=== PATIENT | female | born 1950 | race Caucasian/White ===

== ENCOUNTER 2022-01-02 13:35 | Outpatient (REF) | payer OTHER, SELFPAY ==
[2022-01-02 14:23] LABS: Anion Gap 14 (12-20); Blood Urea Nitrogen 11 mg/dL (9-16); Calcium 10.4 mg/dL (8.4-10.2); Carbon Dioxide 31 mmol/L (22-29); Chloride 102 mmol/L (96-108); Estimated Glomerular Filt Rate > 60; Glucose Random 99 mg/dL (60-115); Potassium 4.7 mmol/L (3.3-5.1); Sodium 142 mmol/L (135-145)
[2022-01-02 14:47] LABS: T4 Thyroxine 7.9 ug/dL (4.5-12.0); Thyroid Stimulating Hormone 0.27 uIU/mL (0.32-4.0)
[2022-01-02 15:01] LABS: Folate > 20.0 ng/mL (> or = 4.0); Vitamin B12 462 pg/mL (200-900)
[2022-01-06 16:36] LABS: Homocysteine 9.9 umol/L (<10.4)
[2022-01-08 09:11] LABS: Methylmalonic Acid 119 nmol/L (87-318)
[2022-01-08 15:11] LABS: Vitamin D 25-OH, D2 <4 ng/mL; Vitamin D 25-OH, D3 48 ng/mL; Vitamin D 25-OH, Total 48 ng/mL (30-100)
== END 2022-01-02 13:36 | disposition home or self-care (01) ==
LOC: HO.LAB 13:35
PROVIDERS: PCP Internal Medicine; Visit Provider Psychiatry & Neurology Neurology
DX: G30.9 Alzheimer's disease, unspecified (principal)
CPT/HCPCS: 36415; 80048; 82306; 82607; 82746; 83090; 83921; 84436; 84443

== ENCOUNTER 2024-11-03 13:26 | Outpatient (AMB) | payer OTHER, SELFPAY ==
--- OUTSIDE RECORDS SUMMARY | 2024-11-03 13:31 | XMS_ITS | Encounter Summary ---
Author Organization [employer] Address [address] [place] [address] Care Team Providers Care Roof Cement And Paint Maker Name Role Phone Gisela Pillai MD Primary Care Provider [phone] Encounter Details Date Type Department Care Team (Late st Contact Info) Description 10/07/[address] [facility] - Main Lab [address] [place] [phone] Katheryn Neville MD [address] [address] Essential (primary) hypertension; Hyperlipidemia, unspecified; Weakness Social History Tobacco Use Types Packs/Day Years Used Date Smoking Tobacco: Former Cigarettes Q uit: 03/30/2006 Smokeless Tobacco: Never Alcohol Use Standard Drinks/Week Comments Yes 0 (1 standard drink = 0.6 oz pur e alcohol) Housing Instability Answer Date Recorde d Are you worried that in the next 2 months you may not have stable housing? No 02/11/2024 Food Access & Nutrition Answer Date Rec orded Do you have access to a vari ety of food including fruits and vegetables? Yes 02/11/2024 Access to Healthcare Answer Date Record ed Within the last 3 months, ho w many times did you visit the emergency department for your medical care? 0 02/11/2024 Health Literacy Answer Date Recorded How often do you need to hav e someone help you when you read instructions, pamphlets, or other written material from your doctor or pharmacy? Always 02/11/2024 Caregiver: How often do you need to have someone help you when you read instructions, pamphlets, or other written material from your doctor or pharmacy? Not on file 02/11/2024 Financial Risk Answer Date Recorded How hard is it for you to pa y for the very basics like food, housing, medical care, and air conditioning / heating? Patient declined 02/11/2024 Transportation Answer Date Recorded Has the lack of transportati on kept you from meetings, work, or from getting things needed for daily living? No Has the lack of transportati on kept you from medical appointments or from getting medications? No 02/11/2024 Social Isolation Answer Date Recorded How often do you feel lonely or isolated from th ose around you? Never 02/11/2024 Food Risk Answer Date Recorded Within the past 12 months we worried whether our food would run out before we got money to buy more. Never true 02/11/2024 Within the past 12 months th e food we bought just didn't last and we didn't have money to get more. Never true 02/11/2024 Dependent Care Answer Date Recorded Do you need help finding or paying for care for your loved ones. For example, child care center administrator or elderly care for an older adult? No 02/11/2024 Education Answer Date Recorded Do you think completing more education or training, like finishing a GED, going to college, or learning a trade, would be helpful for you? No 02/11/2024 Employment and Income Answer Date Recor ded During the last four weeks, have you been actively looking for work? No 02/11/2024 Living Situation Answer Date Recorded What is your living situation? 1 04/12/2023 Comments No Sex and Gender Information Value Date Recorded Sex Assigned at Female 03/03/2024 2:14 PM EST Legal Sex Female 9:27 PM EST Gender Identity Female 03/03/2024 2:14 PM EST Sexual Orientation Straight 03/03/2024 2: 14 PM EST documented as of this encounter Plan of Treatment Upcoming Encounters Date Type Department Care Team (Late st Contact Info) Description 01/18/2025 9:45 AM EDT Office Visit Orthopedic Surgery - [place] [address] [address] Eric Alcala, DPM [address] [address] 02/13/2025 11:00 AM EST Office Visit Adult Medicine [facility] [address] [place] [address] Roshni Summers PA [address] [place] [address] documented as of this encounter Visit Diagnoses Diagnosis Essential (primary) hypertension Unspecified essential hypertension Hyperlipidemia, unspecified Weakness Other malaise and fatigue documented in this encounter Additional Health Concerns Assessment Noted Time PHQ-9 Depression Total Score: 0 02/11/20 24 11:58 AM EST A fall risk assessment has been complete d for the patient 02/11/2024 11:56 AM EST documented as of this encounter Care Teams Roof Cement And Paint Maker Relationship Specialty Start Date End Date Gisela Pillai MD [address] [place] [id number] PCP - General Internal Medicine 11/16/20 documented as of this encounter
--- OUTSIDE RECORDS SUMMARY | 2024-11-03 13:31 | XMS_ITS ---
Author Name [facility] Organization Unknown Care Team Organization Name Specialty Phone Email Start Date End Da te [facility] Gisela Pillai Primary Care 02/04/2022 4
--- NOTE | 2024-11-03 13:57 | MHC.OFFVIS ---
Intake Visit Reasons: 3 Months Accompanied by: Spouse Allergies No Known Allergies Allergy (Verified 11/03/24 13:59) Medication List - Last Reconciled 11/03/24 by Zoila Nunez CNP amlodipine 5 mg PO DAILY donepezil 10 mg PO BEDTIME 90 days gabapentin mg PO levothyroxine 50 mcg PO DAILY memantine 10 mg PO BID sertraline 50 mg PO DAILY simvastatin 20 mg PO BEDTIME HPI Comments Details: She tripped and fell walking upstairs, fractured R ankle and required surgical repair in 08/2024. She was doing okay. No further falls. Memory was about the same, forgetful at times, some days than others. Has trouble using TV remote. Has some trouble with word finding. 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 Increased dose of sertraline seemed to help, less anxious. No medication side effects. Does not like to be left alone.?Gets some anxiety when she knows she has appointment coming up and is worried about being late. Sleep was okay, sometimes kicks in her sleep. Alternating between 5mg and 10mg of donepezil without issue. Previously, was having hallucinations and nightmares with higher dose of donepezil.? Gradual onset and slow progression of cognitive decline with memory especially short-term starting around 2019. 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 On 11/01/2021, she slipped and fell, fractured left femur that required surgery. She had 2 brain MRIs which were unremarkable. Normal laboratory dementia. She has no children. for 51-years. [facility] Medical History (Updated 11/03/24 @ 14:02 by Zoila Nunez CNP) Hypothyroidism HLD (hyperlipidemia) Hypertension Alzheimer disease Family History (Updated 11/03/24 @ 14:08 by Zoila Nunez CNP) Sister Dementia Review of Systems Const Denies chills, Denies daytime sleepiness, Denies difficulty sleeping, Denies fatigue, Denies fever(s), Denies frequent falls, Denies headache(s), Denies increased appetite, Denies poor appetite, Denies snoring, Denies weakness, Denies weight gain and Denies weight loss Eyes Denies loss of vision ENT Denies vertigo, Denies dizziness, Denies headache(s) and Denies neck pain Card Denies chest pain at rest, Denies chest pain with activity, Denies syncope, Denies leg edema, Denies palpitations, Denies dyspnea and Denies dyspnea on exertion Resp Denies cough, Denies dyspnea, Denies dyspnea on exertion and Denies snoring GI Denies abdominal pain, Denies constipation, Denies heartburn, Denies diarrhea and Denies nausea Denies urinary frequency, Denies urinary incontinence and Denies urinary urgency Musc Denies abnormal gait, Denies back pain, Denies myalgias, Denies arthralgias, Denies neck pain, Denies numbness and Denies tingling Neuro Denies abnormal gait, Denies vertigo, Denies dizziness, Denies syncope, Denies frequent falls, Denies headache(s), Denies lack of coordination, Denies loss of vision, Reports memory loss, Denies numbness, Denies Other visual disturbances, Denies restless legs, Denies seizure-like activity, Denies tingling, Denies paresthesias, Denies tremor(s) and Denies weakness Psych Reports anxiety, Denies depression, Denies auditory hallucinations, Reports memory loss and Denies visual hallucinations Endo Denies fatigue and Denies palpitations Physical Exam Const Other: General Appearance:? normal, in no acute distress. Heart:? S1, S2 normal, no murmurs. Lungs:? clear anteriorly and posteriorly. Musculoskeletal:? normal. Extremities:? no edema. Psych:? alert, as below Neuro Other: Abnormal Neurological Findings:?MMSE < 13/30. In wheelchair. Mental Status: alert, as below Cranial Nerves: Pupils are equal, round, and reactive to light. External ocular muscles are intact. Visual licea are full, no ptosis. Face is symmetrical, no facial weakness or droop. Facial sensations are normal. Tongue protrudes in midline. Palate elevates symmetrically. Shoulder shrugging is normal Motor Examination: Normal muscle tone, bulk and strength. No atrophy or fasciculations. No drift of the extended upper extremities. DTR 2+. Plantars are flexor. Sensory Exam: Normal light touch, temperature, pinprick, vibration, and joint-position sensations. Rhomberg sign is absent. Coordination: No ataxia. No titubation. Gait Exam: In wheelchair. Cerebellar Signs: [id number] is okay. Extrapyramidal System: No tremor, rigidity with normal facial expressions. No bradykinesia. No bradyphrenia. Normal arm swing and posture. No propulsion or retropulsion. Speech: Normal. No dysphasia or dysarthria. MMSE Level of Consciousness: Alert. Orientation: Does not know correct year, month, date, day, or season.?Does not know correct city, county,?or state. Does not know correct location or floor.? Registration: Able to register 3 objects. Attention: Unable to do serial 7's Recall: Able to recall 0 out of 3 objects. Language: Normal spontaneous speech, fluency, repetition, naming, comprehension, reading, and writing. Total Score: <13/30. Results Reviewed Results Reviewed: 01/06/22 EEG- WNL Labs normal. MRI brain negative Assessment & Plan Assessment & Plan (1) Alzheimer disease: Code(s): G30.9 - Alzheimer's disease, unspecified; F02.80 - Dementia in other diseases classified elsewhere, unspecified severity, without behavioral disturbance, psychotic disturbance, mood disturbance, and anxiety Category: Medical Plan: Continue memantine 10mg 1 tablet twice a day Continue donepezil 10mg 1/2 ? 1 tablet daily Continue sertraline 50mg 1 tablet daily Coding Level of Care Code Est Pt Level 4 (63059) Diagnoses Alzheimer disease G30.9; F02.80
== END 2024-11-03 14:19 | disposition home or self-care (01) ==
LOC: HO.HSM 13:27
PROVIDERS: PCP Internal Medicine; Referring Provider Internal Medicine; Visit Provider Registered Nurse
DX: G30.9 Alzheimer's disease, unspecified (principal); F02.80 Dementia in other diseases classified elsewhere, unspecified severity, without behavioral disturbance, psychotic disturbance, mood disturbance, and anxiety
CPT/HCPCS: 99214

== ENCOUNTER 2025-02-14 14:21 | Outpatient (AMB) | payer OTHER, SELFPAY ==
--- NOTE | 2025-02-14 14:45 | A.OFFVIS_ITS ---
Intake Visit Reasons: 3m Accompanied by: Spouse Allergies No Known Allergies Allergy (Verified 02/14/25 14:46) Medication List - Last Reconciled 02/14/25 by Zoila Nunez CNP amlodipine 5 mg PO DAILY donepezil 10 mg PO BEDTIME 90 days gabapentin mg PO levothyroxine 50 mcg PO DAILY memantine 10 mg PO BID 90 days sertraline 50 mg PO DAILY 90 days simvastatin 20 mg PO BEDTIME HPI Comments Details: She was doing okay. Memory was about the same, some days better than others. She was forgetful and repetitive, asking the same question over and over. She has some trouble with word finding. 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 She forgot how to use the vacuum and has trouble using the TV remote. Mood was okay. Gets a bit anxious when she knows she has appointment coming up and worries about being late. Does not like to be alone much. Sleep was okay, sometimes kicks in her sleep. Alternating between 5mg and 10mg of donepezil without issue. Previously, was having hallucinations and nightmares with higher dose of donepezil.?No falls. She tripped and fell walking upstairs, fractured R ankle and required surgical repair in 08/2024. Gradual onset and slow progression of cognitive decline with memory especially short-term starting around 2019. 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 On 11/01/2021, she slipped and fell, fractured left femur that required surgery. She had 2 brain MRIs which were unremarkable. Normal laboratory dementia. She has no children. for 51-years. [facility] Medical History (Updated 11/03/24 @ 14:02 by Zoila Nunez CNP) Hypothyroidism HLD (hyperlipidemia) Hypertension Alzheimer disease Family History (Updated 11/03/24 @ 14:08 by Zoila Nunez CNP) Sister Dementia Review of Systems Const Denies chills, Denies daytime sleepiness, Denies difficulty sleeping, Denies fatigue, Denies fever(s), Denies frequent falls, Denies headache(s), Denies increased appetite, Denies poor appetite, Denies snoring, Denies weakness, Denies weight gain and Denies weight loss Eyes Denies loss of vision ENT Denies vertigo, Denies dizziness, Denies headache(s) and Denies neck pain Card Denies chest pain at rest, Denies chest pain with activity, Denies syncope, Denies leg edema, Denies palpitations, Denies dyspnea and Denies dyspnea on exertion Resp Denies cough, Denies dyspnea, Denies dyspnea on exertion and Denies snoring GI Denies abdominal pain, Denies constipation, Denies heartburn, Denies diarrhea and Denies nausea Denies urinary frequency, Denies urinary incontinence and Denies urinary urgency Musc Denies abnormal gait, Denies back pain, Denies myalgias, Denies arthralgias, Denies neck pain, Denies numbness and Denies tingling Neuro Denies abnormal gait, Denies vertigo, Denies dizziness, Denies syncope, Denies frequent falls, Denies headache(s), Denies lack of coordination, Denies loss of vision, Reports memory loss, Denies numbness, Denies Other visual disturbances, Denies restless legs, Denies seizure-like activity, Denies tingling, Denies paresthesias, Denies tremor(s) and Denies weakness Psych Reports anxiety, Denies depression, Denies auditory hallucinations, Reports memory loss and Denies visual hallucinations Endo Denies fatigue and Denies palpitations Physical Exam Const Other: General Appearance:? normal, in no acute distress. Heart:? S1, S2 normal, no murmurs. Lungs:? clear anteriorly and posteriorly. Musculoskeletal:? normal. Extremities:? no edema. Psych:? alert, as below Neuro Other: Abnormal Neurological Findings:?MMSE < 13/30. Mental Status: alert, as below Cranial Nerves: Pupils are equal, round, and reactive to light. External ocular muscles are intact. Visual licea are full, no ptosis. Face is symmetrical, no facial weakness or droop. Facial sensations are normal. Tongue protrudes in midline. Palate elevates symmetrically. Shoulder shrugging is normal Motor Examination: Normal muscle tone, bulk and strength. No atrophy or fasciculations. No drift of the extended upper extremities. DTR 2+. Plantars are flexor. Sensory Exam: Normal light touch, temperature, pinprick, vibration, and joint- position sensations. Rhomberg sign is absent. Coordination: No ataxia. No titubation. Gait Exam: Cautious. Cerebellar Signs: [id number] is okay. Extrapyramidal System: No tremor, rigidity with normal facial expressions. No bradykinesia. No bradyphrenia. Normal arm swing and posture. No propulsion or retropulsion. Speech: Normal. No dysphasia or dysarthria. MMSE Level of Consciousness: Alert. Orientation: Does not know correct year, month, date, day, or season.?Does not know correct city, county,?or state. Does not know correct location or floor.? Registration: Able to register 3 objects. Attention: Unable to do serial 7's Recall: Able to recall 0 out of 3 objects. Language: Normal spontaneous speech, fluency, repetition, naming, comprehension, reading, and writing. Total Score: <13/30. Results Reviewed Results Reviewed: 01/06/22 EEG- WNL Labs normal. MRI brain negative Assessment & Plan Assessment & Plan (1) Alzheimer disease: Code(s): G30.9 - Alzheimer's disease, unspecified; F02.80 - Dementia in other diseases classified elsewhere, unspecified severity, without behavioral disturbance, psychotic disturbance, mood disturbance, and anxiety Category: Medical Plan: Continue memantine 10mg 1 tablet twice a day. Continue donepezil 10mg 1/2 ? 1 tablet daily. Continue sertraline 50mg 1 tablet daily. Follow up in 6 months or sooner as needed. Medications: Refilled donepezil 10 mg PO BEDTIME 90 tabs 1RF 90 days sertraline 50 mg PO DAILY 90 tabs 1RF 90 days memantine 10 mg PO BID 180 tabs 1RF 90 days Coding Level of Care Code Est Pt Level 4 (97699) Diagnoses Alzheimer disease G30.9; F02.80
--- OUTSIDE RECORDS SUMMARY | 2025-02-15 11:02 | XMS_ITS | Encounter Summary ---
Author Organization [employer] Address [address] [place] [address] Care Team Providers Care Appeals Nurse Name Role Phone Gisela Pillai MD Primary Care Provider Encounter Details Date Type Department Care Team (Late st Contact Info) Description 09/30/2024 Lab Requisition [facility] - Main Lab [address] [place] [phone] Katheryn Neville MD [address] [address] Essential (primary) hypertension; Hyperlipidemia, unspecified; Weakness Social History Tobacco Use Types Packs/Day Years Used Date Smoking Tobacco: Former Cigarettes 1 Q uit: 03/30/2006 Smokeless Tobacco: Never Alcohol [...] for your loved ones. For example, child welfare caseworker or elderly care for an older adult? [...] Date Recorded What is your living situation? Unrecognized valu e 02/11/2024 Comments No Sex and Gender Information Value Date Recorded Sex Assigned at Female 03/03/2024 2:14 PM EST Legal Sex Female 9:27 PM EST Gender Identity Female 03/03/2024 2:14 PM EST Sexual Orientation Straight 03/03/2024 2: 14 PM EST documented as of this encounter Plan of Treatment Upcoming Encounters Date Type Department Care Team (Late st Contact Info) Description 02/16/2025 1:30 PM EST Office Visit Adult Medicine [facility] [address] [place], [place] [phone] Gisela Pillai MD [address] [place], [place] 04/20/2025 10:30 AM EST Office Visit Orthopedic Surgery [facility] [address] [phone] Eric Alcala DPM [address] [phone] documented as of this encounter Procedures Procedure Name Priority Date/Time Associated Diagnosis Comments COMPLETE BLOOD COUNT Routine 10/03/2024 7:55 AM EDT Essential (primary) hypertension Hyperlipidemia, unspecified Weakness BASIC METABOLIC PANEL Routine 10/03/2024 7:55 AM EDT Essential (primary) hypertension Hyperlipidemia, unspecified Weakness documented in this encounter Results * Basic metabolic panel (10/03/2024 7:55 AM EDT) Sodium 139 133 - 145 mmol/L LAB CHEMISTRY METHOD 10/03/2024 10:56 AM [facility] Potassium 3.9 3.5 - 5.5 mmol/L LAB CHEMISTRY METHOD 10/03/2024 10:56 AM [facility] Chloride 103 96 - 110 mmol/L LAB CHEMISTRY METHOD 10/03/2024 10:56 AM [facility] CO2 29 21 - 32 mmol/L LAB CHEMISTRY METHOD 10/03/2024 10:56 AM [facility] Anion Gap 7 3 - 11 LAB CHEMISTRY METHOD 10/03/2024 10:56 AM [facility] Glucose 96 70 - 100 mg/dL LAB CHEMISTRY METHOD 10/03/2024 10:56 AM EDT [facility] BUN 9 5 - 25 mg/dL LAB CHEMISTRY METHOD 10/03/2024 10:56 AM EDT [facility] Creatinine 0.69 0.50 - 1.10 mg/dL LAB CHEMISTRY METHOD 10/03/2024 10:56 AM EDT [facility] eGFR 91 >=60 mL/min/1. 73m2 LAB CHEMISTRY METHOD 10/03/2024 10:56 AM EDT [facility] Comment:Calculation based on the Chronic Kidney Disease Epidemiology Collaboration (CKD-EPI) equation refit without adjustment for race. BUN/Creatinine Ratio 13.0 LAB CHEMISTRY METHOD 10/03/2024 10:56 AM [facility] Calcium 9.5 8.5 - 10.5 mg/dL LAB CHEMISTRY METHOD 10/03/2024 10:56 AM EDT [facility] Blood Venous blood specimen / Unknown Venipuncture / Unknown 10/03/2024 7:55 AM EDT 10/03/2024 9:45 AM EDT us Katheryn Neville MD LAB BLOOD ORDERABLES Fin al Result [facility] [address] [place] [address], * (ABNORMAL) Complete blood count (10/03/2024 7:55 AM EDT) WBC 6.6 4.8 - 10.8 K/mcL LAB HEMETOLOGY METHOD 10/03/2024 10:08 AM EDT [facility] RBC 4.20 3.80 - 4.80 M/mcL LAB HEMETOLOGY METHOD 10/03/2024 10:08 AM [facility] Hemoglobin 11.6 11.5 - 16.0 g/dL LAB HEMETOLOGY METHOD 10/03/2024 10:08 AM T [facility] Hematocrit 35.9 35.0 - 47.0 % LAB HEMETOLOGY METHOD 10/03/2024 10:08 AM [facility] MCV 85.5 79.0 - 98.0 FL LAB HEMETOLOGY METHOD 10/03/2024 10:08 AM [facility] MCH 27.6 27.0 - 32.0 pcg LAB HEMETOLOGY METHOD 10/03/2024 10:08 AM EDT [facility] MCHC 32.3 32.0 - 37.0 g/dL LAB HEMETOLOGY METHOD 10/03/2024 10:08 AM [facility] RDW 15.7(H) 11.0 - 15.0 % LAB HEMETOLOGY METHOD 10/03/2024 10:08 AM [facility] Platelets 473(H) 130 - 400 K/mcL LAB HEMETOLOGY METHOD 10/03/2024 10:08 AM [facility] MPV 10.3 7.0 - 11.0 FL LAB HEMETOLOGY METHOD 10/03/2024 10:08 AM [facility] NRBC 0.0 <1.0 % LAB HEMETOLOGY METHOD 10/03/2024 10:08 AM [facility] NRBC Absolute 0.00 <0.10 K/mcL LAB HEMETOLOGY METHOD 10/03/2024 10:08 AM [facility] Blood Venous blood specimen / Unknown Venipuncture / Unknown 10/03/2024 7:55 AM EDT 10/03/2024 9:45 AM EDT us Katheryn Neville MD LAB BLOOD ORDERABLES Fin al Result [facility] [address] [place] [address], documented in this encounter Visit Diagnoses Diagnosis Essential (primary) hypertension Unspecified essential hypertension Hyperlipidemia, unspecified Weakness Other malaise and fatigue documented in this encounter Additional Health Concerns Assessment Noted Time PHQ-9 Depression Total Score: 0 02/11/20 24 11:58 AM EST A fall risk assessment has been complete d for the patient 02/11/2024 11:56 AM EST documented as of this encounter Care Teams Appeals Nurse Relationship Specialty Start Date End Date Gisela Pillai MD [address] [place] [address] PCP - General Internal Medicine 11/16/20 documented as of this encounter
--- OUTSIDE RECORDS SUMMARY | 2025-02-15 11:03 | XMS_ITS | Encounter Summary ---
Author Organization [employer] Address [address] [place] [address] Care Team Providers Care Dray Truck Driver Name Role Phone Gisela Pillai MD Primary Care Provider [phone] Encounter Details Date Type Department Care Team (Late st Contact Info) Description 10/05/2024 Lab Requisition [facility] - Main Lab [address] [place] [phone] Katheryn Neville MD [address] [address] Essential (primary) hypertension; Hyperlipidemia, unspecified; Weakness Social [...] care for your loved ones. For example, exceptional children's teacher or elderly care for an older adult? [...] 1:30 PM EST Office Visit Adult Medicine [facility] [address] [place], [place] [phone] Gisela Pillai MD [address] [place] [address] 04/20/2025 10:30 AM EST Office Visit Orthopedic Surgery [facility] [address] [phone] Eric Alcala, DPM [address] [phone] documented as of this encounter Visit Diagnoses Diagnosis Essential (primary) hypertension Unspecified essential hypertension Hyperlipidemia, unspecified Weakness Other malaise and fatigue documented in this encounter Additional Health Concerns Assessment Noted Time PHQ-9 Depression Total Score: 0 02/11/20 11:58 AM EST A fall risk assessment has been complete d for the patient 02/11/2024 11:56 AM EST documented as of this encounter Care Teams Dray Truck Driver Relationship Specialty Start Date End Date Gisela Pillai MD [address] [place] [address] PCP - General Internal Medicine 11/16/20 documented as of this encounter
--- OUTSIDE RECORDS SUMMARY | 2025-02-15 11:03 | XMS_ITS | Encounter Summary ---
Author Organization [employer] Address [address] [place] [address] Care Team Providers Care Wallpaper Printer Name Role Phone Gisela Pillai MD Primary Care Provider [phone] Encounter Details Date Type Department Care Team (Late st Contact Info) Description 10/07/2024 Lab Requisition [facility] - Main Lab [address] [facility] [address] [address] [place] [phone] Katheryn Neville MD [address] [address] Essential (primary) hypertension; Hyperlipidemia, unspecified; Weakness Social [...] care for your loved ones. For example, home child care provider or elderly care for an older adult? [...] 1:30 PM EST Office Visit Adult Medicine [facility] [address] [place], [place] [phone] Gisela Pillai MD [address] [place] [address] 04/20/2025 10:30 AM EST Office Visit Orthopedic Surgery [facility] [address] [phone] Eric Alcala, DPM [address] [phone] documented as of this encounter [...] documented as of this encounter Care Teams Wallpaper Printer Relationship Specialty Start Date End Date Gisela Pillai MD [address] [place] [address] PCP - General Internal Medicine 11/16/20 documented as of this encounter
--- OUTSIDE RECORDS SUMMARY | 2025-02-15 11:05 | XMS_ITS | Encounter Summary ---
Author Organization [employer] Address [address] [place] [address] Care Team Providers Care Log Rider Name Role Phone Gisela Pillai MD Primary Care Provider [phone] Encounter Details Date Type Department Care Team (Late st Contact Info) Description 09/28/2024 Lab Requisition [facility] - Main Lab [address] [facility] [place] [phone] Katheryn Neville MD [address] [address] Essential (primary) hypertension; Hyperlipidemia, unspecified; Weakness Social [...] care for your loved ones. For example, early childhood coordinator or elderly care for an older adult? [...] 1:30 PM EST Office Visit Adult Medicine [facility] [address] [place], [place] [phone] Gisela Pillai MD [address] [place], [place] 04/20/2025 10:30 AM EST Office Visit Orthopedic Surgery [facility] [address] [phone] Eric Alcala DPBong [address] [phone] documented as of this encounter Procedures Procedure Name Priority Date/Time Associated Diagnosis Comments COMPLETE BLOOD COUNT Routine 09/29/2024 8:11 AM EDT Essential (primary) hypertension Hyperlipidemia, unspecified Weakness BASIC METABOLIC PANEL Routine 09/29/2024 8:11 AM EDT Essential (primary) hypertension Hyperlipidemia, unspecified Weakness documented in this encounter Results * (ABNORMAL) Complete blood count (09/29/2024 8:11 AM EDT) WBC 8.9 4.8 - 10.8 K/mcL LAB HEMETOLOGY METHOD 09/29/2024 10:38 AM EDT [facility] RBC 4.10 3.80 - 4.80 M/mcL LAB HEMETOLOGY METHOD 09/29/2024 10:38 AM EDT [facility] LAB Hemoglobin 11.3(L) 11.5 - 16.0 g/dL LAB HEMETOLOGY METHOD 09/29/2024 10:38 AM [facility] Hematocrit 35.0 35.0 - 47.0 % LAB HEMETOLOGY METHOD 09/29/2024 10:38 AM T [facility] LAB MCV 85.0 79.0 - 98.0 FL LAB HEMETOLOGY METHOD 09/29/2024 10:38 AM EDT [facility] LAB MCH 27.4 27.0 - 32.0 pcg LAB HEMETOLOGY METHOD 09/29/2024 10:38 AM EDT [facility] LAB MCHC 32.3 32.0 - 37.0 g/dL LAB HEMETOLOGY METHOD 09/29/2024 10:38 AM EDT [facility] RDW 15.5(H) 11.0 - 15.0 % LAB HEMETOLOGY METHOD 09/29/2024 10:38 AM EDT [facility] Platelets 471(H) 130 - 400 K/mcL LAB HEMETOLOGY METHOD 09/29/2024 10:38 AM EDT [facility] MPV 10.3 7.0 - 11.0 FL LAB HEMETOLOGY METHOD 09/29/2024 10:38 AM EDT [facility] NRBC 0.0 <1.0 % LAB HEMETOLOGY METHOD 09/29/2024 10:38 AM EDT [facility] NRBC Absolute 0.00 <0.10 K/mcL LAB HEMETOLOGY METHOD 09/29/2024 10:38 AM EDT [facility] Blood Venous blood specimen / Unknown Venipuncture / Unknown 09/29/2024 8:11 AM EDT 09/29/2024 10:14 AM EDT us Katheryn Neville MD LAB BLOOD ORDERABLES Fin al Result [facility] LAB [address] [place] [address], * Basic metabolic panel (09/29/2024 8:11 AM EDT) [facility] Sodium 139 133 - 145 mmol/L LAB CHEMISTRY METHOD 09/29/2024 10:59 AM [facility] Potassium 4.1 3.5 - 5.5 mmol/L LAB CHEMISTRY METHOD 09/29/2024 10:59 AM [facility] Chloride 104 96 - 110 mmol/L LAB CHEMISTRY METHOD 09/29/2024 10:59 AM [facility] CO2 29 21 - 32 mmol/L LAB CHEMISTRY METHOD 09/29/2024 10:59 AM [facility] Anion Gap 6 3 - 11 LAB CHEMISTRY METHOD 09/29/2024 10:59 AM [facility] Glucose 85 70 - 100 mg/dL LAB CHEMISTRY METHOD 09/29/2024 10:59 AM [facility] BUN 10 5 - 25 mg/dL LAB CHEMISTRY METHOD 09/29/2024 10:59 AM [facility] Creatinine 0.65 0.50 - 1.10 mg/dL LAB CHEMISTRY METHOD 09/29/2024 10:59 AM [facility] eGFR 93 >=60 mL/min/1. 73m2 LAB CHEMISTRY METHOD 09/29/2024 10:59 AM [facility] Comment:Calculation based on the Chronic Kidney Disease Epidemiology Collaboration (CKD-EPI) equation refit without adjustment for race. BUN/Creatinine Ratio 15.4 LAB CHEMISTRY METHOD 09/29/2024 10:59 AM [facility] Calcium 9.7 8.5 - 10.5 mg/dL LAB CHEMISTRY METHOD 09/29/2024 10:59 AM [facility] Blood Venous blood specimen / Unknown Venipuncture / Unknown 09/29/2024 8:11 AM EDT 09/29/2024 10:14 AM EDT us Katheryn Neville MD LAB BLOOD ORDERABLES Fin al Result [facility] [address] [place] [address], documented in this encounter Visit Diagnoses Diagnosis Essential (primary) hypertension Unspecified essential hypertension Hyperlipidemia, unspecified Weakness Other malaise and fatigue documented in this encounter Additional Health Concerns Assessment Noted Time PHQ-9 Depression Total Score: 0 02/11/20 11:58 AM EST A fall risk assessment has been complete d for the patient 02/11/2024 11:56 AM EST documented as of this encounter Care Teams Log Rider Relationship Specialty Start Date End Date Gisela Pillai MD [address] [place] [address] PCP - General Internal Medicine 11/16/20 documented as of this encounter
--- OUTSIDE RECORDS SUMMARY | 2025-02-15 11:05 | XMS_ITS | Encounter Summary ---
Author Organization [email or web address] Address [address] [place] [address] Care Team Providers Care Cryptographic Clerk Name Role Phone Gisela Pillai MD Primary Care Provider Encounter Details Date Type Department Care Team (Late st Contact Info) Description 09/23/2024 Lab Requisition [facility] - Main Lab [address] [place] [phone] Katheryn Neville MD [address] [address] Essential (primary) hypertension; Hyperlipidemia, unspecified; Weakness Social [...] care for your loved ones. For example, special needs child caregiver or elderly care for an older adult? [...] EST Office Visit Adult Medicine [facility] [address] [place], [place] [phone] Gisela Pillai MD [address] [place], [place] 04/20/2025 10:30 AM EST Office Visit Orthopedic Surgery [facility] [address] [phone] Eric Alcala DPBong [address] [phone] documented as of this encounter Procedures Procedure Name Priority Date/Time Associated Diagnosis Comments COMPLETE BLOOD COUNT Routine 09/26/2024 7:19 AM EDT Essential (primary) hypertension Hyperlipidemia, unspecified Weakness BASIC METABOLIC PANEL Routine 09/26/2024 7:19 AM EDT Essential (primary) hypertension Hyperlipidemia, unspecified Weakness documented in this encounter Results * (ABNORMAL) Complete blood count (09/26/2024 7:19 AM EDT) WBC 6.6 4.8 - 10.8 K/mcL LAB HEMETOLOGY METHOD 09/26/2024 10:41 AM EDT [facility] RBC 3.80 3.80 - 4.80 M/mcL LAB HEMETOLOGY METHOD 09/26/2024 10:41 AM EDT [facility] Hemoglobin 10.3(L) 11.5 - 16.0 g/dL LAB HEMETOLOGY METHOD 09/26/2024 10:41 AM [facility] LAB Hematocrit 32.1(L) 35.0 - 47.0 % LAB HEMETOLOGY METHOD 09/26/2024 10:41 AM EDT [facility] MCV 84.7 79.0 - 98.0 FL LAB HEMETOLOGY METHOD 09/26/2024 10:41 AM EDT [facility] MCH 27.2 27.0 - 32.0 pcg LAB HEMETOLOGY METHOD 09/26/2024 10:41 AM EDT [facility] MCHC 32.1 32.0 - 37.0 g/dL LAB HEMETOLOGY METHOD 09/26/2024 10:41 AM EDT [facility] RDW 14.9 11.0 - 15.0 % LAB HEMETOLOGY METHOD 09/26/2024 10:41 AM EDT [facility] Platelets 343 130 - 400 K/mcL LAB HEMETOLOGY METHOD 09/26/2024 10:41 AM EDT [facility] MPV 10.4 7.0 - 11.0 FL LAB HEMETOLOGY METHOD 09/26/2024 10:41 AM EDT [facility] NRBC 0.0 <1.0 % LAB HEMETOLOGY METHOD 09/26/2024 10:41 AM EDT [facility] NRBC Absolute 0.00 <0.10 K/mcL LAB HEMETOLOGY METHOD 09/26/2024 10:41 AM [facility] Blood Venous blood specimen / Unknown Venipuncture / Unknown 09/26/2024 7:19 AM EDT 09/26/2024 10:04 AM EDT us Katheryn Neville MD LAB BLOOD ORDERABLES Fin al Result [facility] [address] [place] [address], * Basic metabolic panel (09/26/2024 7:19 AM EDT) [facility] Sodium 140 133 - 145 mmol/L LAB CHEMISTRY METHOD 09/26/2024 11:01 AM [facility] Potassium 4.2 3.5 - 5.5 mmol/L LAB CHEMISTRY METHOD 09/26/2024 11:01 AM [facility] Chloride 104 96 - 110 mmol/L LAB CHEMISTRY METHOD 09/26/2024 11:01 AM [facility] CO2 29 21 - 32 mmol/L LAB CHEMISTRY METHOD 09/26/2024 11:01 AM [facility] Anion Gap 7 3 - 11 LAB CHEMISTRY METHOD 09/26/2024 11:01 AM [facility] Glucose 90 70 - 100 mg/dL LAB CHEMISTRY METHOD 09/26/2024 11:01 AM [facility] BUN 11 5 - 25 mg/dL LAB CHEMISTRY METHOD 09/26/2024 11:01 AM [facility] Creatinine 0.65 0.50 - 1.10 mg/dL LAB CHEMISTRY METHOD 09/26/2024 11:01 AM [facility] eGFR 93 >=60 mL/min/1. 73m2 LAB CHEMISTRY METHOD 09/26/2024 11:01 AM [facility] Comment:Calculation based on the Chronic Kidney Disease Epidemiology Collaboration (CKD-EPI) equation refit without adjustment for race. BUN/Creatinine Ratio 16.9 LAB CHEMISTRY METHOD 09/26/2024 11:01 AM [facility] Calcium 9.0 8.5 - 10.5 mg/dL LAB CHEMISTRY METHOD 09/26/2024 11:01 AM [facility] Blood Venous blood specimen / Unknown Venipuncture / Unknown 09/26/2024 7:19 AM EDT 09/26/2024 10:04 AM EDT us Katheryn Neville MD LAB BLOOD ORDERABLES Fin al Result [facility] [address] [place] [address], documented in this encounter Visit Diagnoses Diagnosis Essential (primary) hypertension Unspecified essential hypertension Hyperlipidemia, unspecified Weakness Other malaise and fatigue documented in this encounter Additional Health Concerns Assessment Noted Time PHQ-9 Depression Total Score: 0 02/11/20 24 11:58 AM EST A fall risk assessment has been complete d for the patient 02/11/2024 11:56 AM EST documented as of this encounter Care Teams Cryptographic Clerk Relationship Specialty Start Date End Date Gisela Pillai MD [address] [place] [address] PCP - General Internal Medicine 11/16/20 documented as of this encounter
--- OUTSIDE RECORDS SUMMARY | 2025-02-15 11:05 | XMS_ITS | Encounter Summary ---
Author Organization [employer] Address [address] [place] [address] Care Team Providers Care Culinary Chef Name Role Phone Gisela Pillai MD Primary Care Provider [phone] Encounter Details Date Type Department Care Team (Late st Contact Info) Description 09/22/2024 Lab Requisition [facility] - Main Lab [address] [facility] [place] [phone] Katheryn Neville MD [address] [address] Essential (primary) hypertension; Weakness; Hyperlipidemia, unspecified; Hypothyroidism, unspecified; Vitamin D deficiency, unspecified Social History Tobacco Use Types Packs/Day Years [...] care for your loved ones. For example, rn child or elderly care for an older adult? [...] Visit Adult Medicine [facility] [address] [place], [place] [phone] Gisela Pillai MD [address] [place], [place] 04/20/2025 10:30 AM EST Office Visit Orthopedic Surgery - [place] [address] [phone] Eric Alcala, DPM [address] [phone] documented as of this encounter Procedures Procedure Name Priority Date/Time Associated Diagnosis Comments THYROID STIMULATING HORMONE WITH REFLEX TO FREE T4 AND FREE T3 Routine 09/22/2024 6:56 AM EDT Essential (primary) hypertension Weakness Hyperlipidemia, unspecified Hypothyroidism, unspecified Vitamin D deficiency, unspecified COMPLETE BLOOD COUNT Routine 09/22/2024 6:56 AM EDT Essential (primary) hypertension Weakness Hyperlipidemia, unspecified Hypothyroidism, unspecified Vitamin D deficiency, unspecified FOLATE Routine 09/22/2024 6:56 AM EDT Essential (primary) hypertension Weakness Hyperlipidemia, unspecified Hypothyroidism, unspecified Vitamin D deficiency, unspecified VITAMIN B12 Routine 09/22/2024 6:56 AM EDT Essential (primary) hypertension Weakness Hyperlipidemia, unspecified Hypothyroidism, unspecified Vitamin D deficiency, unspecified COMPREHENSIVE METABOLIC PANEL Routine 09/22/2024 6:56 AM EDT Essential (primary) hypertension Weakness Hyperlipidemia, unspecified Hypothyroidism, unspecified Vitamin D deficiency, unspecified documented in this encounter Results * (ABNORMAL) Folate (09/22/2024 6:56 AM EDT) Folate >20.0(H) 2.8 - 17.0 ng/ml LAB CHEMISTRY METHOD 09/22/2024 10:11 AM EDT [facility] Blood Venous blood specimen / Unknown Venipuncture / Unknown 09/22/2024 6:56 AM EDT 09/22/2024 8:42 AM EDT Katheryn Neville MD LAB BLOOD ORDERABLES Fin al Result [facility] [address] [place] [address], [place] [phone] * Vitamin B12 (09/22/2024 6:56 AM EDT) [facility] Vitamin B-12 748 250 - 900 pcg/mL LAB CHEMISTRY METHOD 09/22/2024 10:11 AM EDT [facility] Blood Venous blood specimen / Unknown Venipuncture / Unknown 09/22/2024 6:56 AM EDT 09/22/2024 8:42 AM EDT Katheryn Neville MD LAB BLOOD ORDERABLES Fin al Result [facility] [address] [place] [address], [place] [phone] * Thyroid stimulating hormone with reflex to free t4 and free t3 (09/22/2024 6:56 AM EDT) [facility] TSH 2.81 0.40 - 4.00 mcIU/mL LAB CHEMISTRY METHOD 09/22/2024 10:51 AM EDT [facility] Blood Venous blood specimen / Unknown Venipuncture / Unknown 09/22/2024 6:56 AM EDT 09/22/2024 8:42 AM EDT Katheryn Neville MD LAB BLOOD ORDERABLES Fin al Result [facility] [address] [place] [address], * (ABNORMAL) Comprehensive metabolic panel (09/22/2024 6:56 AM EDT) Sodium 138 133 - 145 mmol/L LAB CHEMISTRY METHOD 09/22/2024 9:48 AM [facility] Potassium 4.1 3.5 - 5.5 mmol/L LAB CHEMISTRY METHOD 09/22/2024 9:48 AM [facility] Chloride 102 96 - 110 mmol/L LAB CHEMISTRY METHOD 09/22/2024 9:48 AM [facility] CO2 29 21 - 32 mmol/L LAB CHEMISTRY METHOD 09/22/2024 9:48 AM [facility] Anion Gap 7 3 - 11 LAB CHEMISTRY METHOD 09/22/2024 9:48 AM [facility] Glucose 103(H) 70 - 100 mg/dL LAB CHEMISTRY METHOD 09/22/2024 9:48 AM [facility] BUN 10 5 - 25 mg/dL LAB CHEMISTRY METHOD 09/22/2024 9:48 AM [facility] Creatinine 0.63 0.50 - 1.10 mg/dL LAB CHEMISTRY METHOD 09/22/2024 9:48 AM [facility] eGFR 93 >=60 mL/min/1. 73m2 LAB CHEMISTRY METHOD 09/22/2024 9:48 AM [facility] Comment:Calculation based on the Chronic Kidney Disease Epidemiology Collaboration (CKD-EPI) equation refit without adjustment for race. BUN/Creatinine Ratio 15.9 LAB CHEMISTRY METHOD 09/22/2024 9:48 AM [facility] Calcium 8.9 8.5 - 10.5 mg/dL LAB CHEMISTRY METHOD [facility]/22[facility]24 [facility] AST (SGOT) 35 10 - 42 unit/L LAB CHEMISTRY METHOD 09/22/2024 9:48 AM [facility] ALT (SGPT) 20 10 - 60 unit/L LAB CHEMISTRY METHOD 09/22/2024 9:48 AM [facility] Alkaline Phosphatase 80 42 - 121 unit/L LAB CHEMISTRY METHOD 09/22/2024 9:48 AM EDT [facility] Total Protein 5.8(L) 6.0 - 8.0 g/dL LAB CHEMISTRY METHOD 09/22/2024 9:48 AM [facility] Albumin 2.7(L) 3.2 - 5.0 g/dL LAB CHEMISTRY METHOD 09/22/2024 9:48 AM [facility] Total Bilirubin 0.4 0.0 - 1.4 mg/dL LAB CHEMISTRY METHOD 09/22/2024 9:48 AM [facility] Blood Venous blood specimen / Unknown Venipuncture / Unknown 09/22/2024 6:56 AM EDT 09/22/2024 8:42 AM EDT us Katheryn Neville MD LAB BLOOD ORDERABLES Fin al Result [facility] [address] [place] [address], * (ABNORMAL) Complete blood count (09/22/2024 6:56 AM EDT) WBC 8.5 4.8 - 10.8 K/mcL LAB HEMETOLOGY METHOD [facility] RBC 3.60(L) 3.80 - 4.80 M/mcL LAB HEMETOLOGY METHOD 09/22/2024 9:12 AM [facility] Hemoglobin 9.9(L) 11.5 - 16.0 g/dL LAB HEMETOLOGY METHOD 09/22/2024 9:12 AM EDT [facility] Hematocrit 29.9(L) 35.0 - 47.0 % LAB HEMETOLOGY METHOD 09/22/2024 9:12 AM T [facility] MCV 83.1 79.0 - 98.0 FL LAB HEMETOLOGY METHOD 09/22/2024 9:12 AM EDT [facility] MCH 27.5 27.0 - 32.0 pcg LAB HEMETOLOGY METHOD 09/22/2024 9:12 AM T [facility] MCHC 33.1 32.0 - 37.0 g/dL LAB HEMETOLOGY METHOD 09/22/2024 9:12 AM [facility] RDW 15.3(H) 11.0 - 15.0 % LAB HEMETOLOGY METHOD 09/22/2024 9:12 AM [facility] Platelets 236 130 - 400 K/mcL LAB HEMETOLOGY METHOD 09/22/2024 9:12 AM [facility] MPV 10.9 7.0 - 11.0 FL LAB HEMETOLOGY METHOD 09/22/2024 9:12 AM [facility] NRBC 0.0 <1.0 % LAB HEMETOLOGY METHOD 09/22/2024 9:12 AM [facility] NRBC Absolute 0.00 <0.10 K/mcL LAB HEMETOLOGY METHOD 09/22/2024 9:12 AM [facility] Blood Venous blood specimen / Unknown Venipuncture / Unknown 09/22/2024 6:56 AM EDT 09/22/2024 8:42 AM EDT us Katheryn Neville MD LAB BLOOD ORDERABLES Fin al Result [facility] [address] [place] [address], documented in this encounter Visit Diagnoses Diagnosis Essential (primary) hypertension Unspecified essential hypertension Weakness Other malaise and fatigue Hyperlipidemia, unspecified Hypothyroidism, unspecified Vitamin D deficiency, unspecified documented in this encounter Additional Health Concerns Assessment Noted Time PHQ-9 Depression Total Score: 0 02/11/20 11:58 AM EST A fall risk assessment has been complete d for the patient 02/11/2024 11:56 AM EST documented as of this encounter Care Teams Culinary Chef Relationship Specialty Start Date End Date Gisela Pillai MD [address] [place] [address] PCP - General Internal Medicine 11/16/20 documented as of this encounter
--- OUTSIDE RECORDS SUMMARY | 2025-02-15 11:07 | XMS_ITS | Encounter Summary ---
Author Organization [employer] Address [address] [place] [address] Care Team Providers Care Assistant Principal Name Role Phone Gisela Pillai MD Primary Care Provider [phone] Reason for Visit * Reason Onset Date Comments Request For Order(s) 01/24/2025 Encounter Details Date Type Department Care Team (Late st Contact Info) Description 01/24/2025 Telephone Adult Medicine [facility] [address] [place], [place] [phone] Gisela Pillai MD [address] [place], [place] Social History Tobacco Use Types Packs/Day Years [...] for your loved ones. For example, child nutrition director or elderly care for an older adult? [...] PM EST documented as of this encounter Progress Notes * Mariposa Pan RN - 02/13/2025 1:24 PM EST A hospital follow up appointment was made for her to be seen in the office on 02/16/25 at 1:[address] Pillai and he is in agreement with this plan. * TRACY Reyes - 02/13/2025 12:51 PM EST Does patient need hospital follow-up scheduled? Patient no-showed appointment today and there have been additional messages questioning capacity. Please re-schedule with PCP. TRACY Reyes * [place] - 01/24/2025 4:[address] [facility] is calling and asking that the PCP order a bone density for the patient . The patient had a fracture 09/16/24. documented in this encounter Plan of Treatment Upcoming Encounters Date Type Department Care Team (Late st Contact Info) Description 02/16/2025 1:30 PM EST Office Visit Adult Medicine [address] [phone] Gisela Pillai MD [address] [place], [place] 04/20/2025 10:30 AM EST Office Visit Orthopedic Surgery - [place] [address] [phone] Eric Alcala DPM [address] [phone] documented as of this encounter Visit Diagnoses Not on filedocumented in this encounter Additional Health Concerns Assessment Noted Time PHQ-9 Depression Total Score: 0 02/11/20 11:58 AM EST A fall risk assessment has been complete d for the patient 02/11/2024 11:56 AM EST documented as of this encounter Care Teams Assistant Principal Relationship Specialty Start Date End Date Gisela Pillai MD [address] [place] [address] PCP - General Internal Medicine 11/16/20 documented as of this encounter
--- OUTSIDE RECORDS SUMMARY | 2025-02-15 11:08 | XMS_ITS | Encounter Summary ---
Author Organization [employer] Address [address] [place] [address] Care Team Providers Care [employer] Name Role Phone Gisela Pillai MD Primary Care Provider [phone] Reason for Visit * Reason Onset Date Comments capasity questions 01/12/2025 Encounter Details Date Type Department Care Team (Late st Contact Info) Description 01/12/2025 Telephone Adult Medicine [facility] [address] [place], [place] [phone] Gisela Pillai MD [address] [place], [place] Social History Tobacco Use Types Packs/Day [...] for your loved ones. For example, exceptional children teacher or elderly care for an older [...] as of this encounter Progress Notes * Franca King - 01/18/2025 12:06 PM EDT [facility] ([facility] called and stated no respond has been received from the PCP in reference to decisional capacity, health care proxy and if health care proxy is in invoke. [facility] want to know if PCP has any concerns [facility] info is [phone] * Jordyn Eisenberg - 01/16/2025 9:28 AM EDT [facility] calling on status of return call please call her at [phone] * Kunal Pascual [place] - 01/13/2025 12:16 PM EDT Please review and advise. * Franca King - 01/12/2025 2:48 PM EDT [facility] ([facility]) Felicia called wanting to know patient decisional capacity, health care proxy and if health care proxy is in invoke. [facility] want to know if PCP has any concerns[facility] info is [phone] documented in this encounter Plan of Treatment Upcoming Encounters Date Type Department Care Team (Late st Contact Info) Description 02/16/2025 1:30 PM EST Office Visit Adult Medicine [facility] [address] [place], [place] [phone] Gisela Pillai MD [address] [place], [place] 04/20/2025 10:30 AM EST Office Visit Orthopedic Surgery - [place] [address] [facility] [address] [place] [address] Eric Alcala, DPM [address] [phone] documented as of this encounter Visit Diagnoses Not on filedocumented in this encounter Additional Health Concerns Assessment Noted Time PHQ-9 Depression Total Score: 0 02/11/20 11:58 AM EST A fall risk assessment has been complete d for the patient 02/11/2024 11:56 AM EST documented as of this encounter Care Teams [employer] Relationship Specialty Start Date End Date Gisela Pillai MD [address] [place] [phone] PCP - General Internal Medicine 11/16/20 documented as of this encounter
--- OUTSIDE RECORDS SUMMARY | 2025-02-15 11:08 | XMS_ITS | Clinical Summary ---
Author Organization [address] [facility] Address [address] [place] [address] Phone Care Team Providers Care Channel Account Manager Name Role Phone Gisela Pillai MD Primary Care Provider [phone] Allergies Active Allergy Reactions Criticality Noted Date Comments Erythromycin 08/17/2012 Latex 02/11/2024 Medications loperamide (IMODIUM) 2 mg capsule TAKE 1 CAPSULE BY MOUTH EVERY 4 HOURS NEEDED LOOSE STOOL 11/23/19 23 Active CYANOCOBALAMIN , VITAMIN B-12, ORAL Take by mouth. Active clobetasoL (TEMOVATE) 0.05 % topical solution Apply ~ 10 drops to scalp twice a day if itch is present 12/10/19 23 Active omega-3 acid ethyl esters (LOVAZA) 1 gram capsule Take 2 capsules (2,000 mg total) by mouth 1 (one) time each day. Active memantine (NAMENDA) 10 mg tablet Take 1 tablet (10 mg total) by mouth 2 (two) times a day. Active ketoconazole (NIZORAL) 2 % shampoo Apply 10 mL to wet scalp, lather, leave on 10 minutes, and rinse; apply 3x weekly 12/10/19 Active donepeziL (ARICEPT) 10 mg tablet Take 0.5 tablets (5 mg total) by mouth at bedtime. Active cholecalcifero l (VITAMIN D-3) 25 mcg (1,000 unit) capsule Take 1 capsule (1,000 Units total) by mouth 1 (one) time each day. 02/18/20 22 Active aspirin 81 mg EC tablet Take 1 tablet (81 mg total) by mouth 1 (one) time each day. Active multivitamin (MULTIPLE VITAMINS ORAL) Take by mouth daily. Active calcium carbonate (CALCIUM 600 ORAL) Take 1 tablet by mouth 2 (two) times a day. 02/18/20 Active cyclosporine (RESTASIS OPHT) apply to the eye. Active PARoxetine (PAXIL) 10 mg tablet Take 1 tablet (10 mg total) by mouth 1 (one) time each day in the morning. 90 tablet 1 08/12/19 25 Active gabapentin (NEURONTIN) 300 mg capsule TAKE 1 CAPSULE(300 MG) BY MOUTH EVERY 12 HOURS 180 capsule 1 10/21/19 25 Active amLODIPine (NORVASC) 5 mg tablet TAKE 1 TABLET(5 MG) BY MOUTH AT BEDTIME 90 tablet 1 10/25/19 25 Active LORazepam (ATIVAN) 0.5 mg tablet Take 1 tablet (0.5 mg total) by mouth 1 (one) time each day if needed for anxiety. Max Daily Amount: 0.5 mg 28 tablet 12/01/19 25 Active zolpidem (AMBIEN) 5 mg tablet Take 1 tablet (5 mg total) by mouth at bedtime as needed for sleep. Max Daily Amount: 5 mg 28 tablet 01/20/20 25 Active simvastatin (ZOCOR) 20 mg tablet TAKE 1 TABLET(20 MG) BY MOUTH AT BEDTIME 90 tablet 02/08/20 25 Active levothyroxine (SYNTHROID, LEVOTHROID) 50 mcg tablet TAKE 1 TABLET(50 MCG) BY MOUTH 1 TIME EACH DAY BEFORE BREAKFAST 90 tablet 02/08/20 25 Active simvastatin (ZOCOR) 20 mg tablet Take 1 tablet (20 mg total) by mouth at bedtime. 90 tablet 1 08/12/19 25 025 Discontinued levothyroxine (SYNTHROID, LEVOTHROID) 50 mcg tablet Take 1 tablet (50 mcg total) by mouth 1 (one) time each day before breakfast. 90 tablet 1 08/12/19 25 025 Discontinued zolpidem (AMBIEN) 5 mg tablet Take 1 tablet (5 mg total) by mouth at bedtime as needed for sleep. Max Daily Amount: 5 mg 28 tablet 12/01/19 25 025 Discontinued(Re order) Active Problems Problem Noted Date Diagnosed Date Dementia ([facility] V24, [facility] V28) 07/30/2022 Prediabetes 02/18/2022 B12 deficiency 11/27/2021 Overview (01/03/2024): 10/18 initial level B12 136 Hip fracture ([facility], [facility] V28) 11/27/19 Overview (01/03/2024): 11/18 left femoral neck fracture, ORIF Renal cyst, left 09/18/2021 Overview (01/03/2024): Dr. Frank- 2cm left renal lesion, not cystic in nature. Repeat CT abd with contrast pending Iritis 09/09/2018 Overview (01/03/2024): [facility], Dr. Mcgowan Low back pain 11/19/2017 Overview (01/03/2024): Lumbar fusion 09/2017, Dr. Garcia Hypertension 09/02/2017 Hyperparathyroidism ([facility] V24) 06/15/2014 Overview (01/03/2024): Dr. Fish Diverticulosis 01/26/2013 Overview (01/03/2024): Found incidentally on colonoscopy Colon polyp 10/13/2012 Overview (01/03/2024): 09/05/09 - GI Dr. Langley; small 4-5mm cecal polyp (tubular adenoma), two 4mm polyps (tubular adenoma, hyperplastic polyp) at hepatic flexure; internal hemorrhoids; followup recommended 3 years 01/21/13 - Dr. Koenigs - colonoscopy - polyp removed; diverticulosis in the transverse colon; internal hemorrhoids; repeat colonoscopy 5 years Osteopenia 10/13/2012 Overview (01/03/2024): Bone density - 08/13/09 T score - right femoral neck -1.6; left femoral neck -1.9 Osteopenia - 12/12 Osteopenia - 02/13 Osteopenia of hip - 01/16 GERD (gastroesophageal reflux disease) 3 Overview (01/03/2024): Dr. Langley - 01/29/09 - upper endoscopy (no intestinal metaplasia identified); small hiatal hernia Hyperlipidemia 08/17/2012 Insomnia 08/17/2012 Anxiety 08/17/2012 Overview (01/03/2024): Intolerance of Paxil Eczema 08/17/2012 Hypothyroidism 08/17/2012 Encounters Date Type Department Care Team Description 01/24/2025 Telephone Adult Medicine [address] [phone] Gisela Pillai MD 01/18/2025 9:45 AM EDT Office Visit Orthopedic Surgery - [address] [phone] Eric Alcala, DPM Metatarsalgia of both feet (Primary Dx); Dermatophytosis of nail; Corns and callosities 01/12/2025 Telephone Adult Medicine [address] [phone] Gisela Pillai MD from Last 3 Months Immunizations Immunization Administration Dates Next Due HepB-CpG (Heplisav-B) 18yo and older 02/18/2023 Influenza Quadravalent, 0.5m l (Fluad) 65yo and older 12/16/2022,12/30/2021,12/27/2020 Influenza Quadravalent, 0.5m l (Fluzone High-dose) 65yo and older 12/27/2019 Influenza trivalent, 0.5mL ( Fluad) 65yo and older 12/09/2018,12/25/2017 Influenza trivalent, 0.5mL ( Fluzone High-dose) 65yo and older 01/14/2024,12/23/2016,11/30/2015 Influenza trivalent, with pr eservative (Fluzone; Afluria) 6mo and older 12/14/2014,02/01/2014,01/26/2013 Moderna SARS-CoV-2 COVID-19, mRNA, LNP-S, preservative free 02/02/2021 Pneumococcal conjugate 13 va lent (Prevnar 13, PCV13) 2mo and older 11/24/2014 Pneumococcal polysaccharide 23 valent (Pneumovax 23) 2yo and older 11/30/2015 RSV, bivalent, protein subun it RSVpreF, 0.5mL, Preservative Free (ABRYSVO) 50yo and older or 32 through 36 wks of 02/10/2023 Td Tetanus diptheria (Tdvax) 7yo and older 11/29/2020 Tdap Tetanus diptheria acell ular pertussis (Boostrix; Adacel) 7yo and older 08/15/2010 Zoster recombinant (Shingrix ) 19yo and older 06/15/2024,04/15/2024,12/27/2020,10/12 Surgical History Surgery Date Site/Laterality Comments TONSILLECTOMY WISDOM TOOTH EXTRACTION OTHER SURGICAL HISTORY 09/2017 ARTHRODESIS POSTERIOR INTERBODY 1 [facility] LUMBAR; COMMENT: L4-5, Dr. Garcia COLONOSCOPY 04/27/2018 2 polyps (tub ad/sessile ad), tics, int hem Medical History Medical History Date Comments Hypothyroidism 08/17/2012 Hyperlipidemia 08/17/2012 Environmental allergies 08/17/2012 Insomnia 08/17/2012 Anxiety 08/17/2012 Eczema 08/17/2012 GERD (gastroesophageal reflux disease) 3 Colon polyp 10/13/201209/06 - followup 6; as per old records; GI Dr. Langley Osteopenia 10/13/2012 Bone density - T score - right femoral neck -1.6; left femoral neck -1.9 Abnormal PFTs 10/13/2012 02/12/12 - Octavio metry FVC 94 % predicted FEV1 49 % predicted FEV1/FVC 54 % predicted PEF 34 % predicted [id number] 20 % predicted Diverticulosis 01/26/2013 Found incidental ly on colonoscopy Hip fracture ([facility] V24, [facility] V28) 11/26/202111/18 left femoral neck fract ure, ORIF Dementia ([facility] V24, [facility] V28) 07/30/2022 B12 deficiency 11/27/202110/18 initial lev el B12 136 Family History Medical History Relation Name Comments Breast cancer Aunt maternal aunt; second primary breast cancer at age 85 Other cancer Brother neck lump ? ann shree Liver disease Father HTN Alzheimer's disease Mother Other: colon cancer Other 1 maternal great uncle Other cancer Other 2 paternal great uncle Hyperthyroidism Sister cholesterol Relation Name Status Comments Aunt Brother Alive Father (Age 78) Mother (Age 85) Other 1 Other 2 Sister Alive Social History Tobacco Use Types Packs/Day Years Used Date Smoking Tobacco: Former Cigarettes 1 Q uit: 03/30/2006 Smokeless Tobacco: Never Tobacco Cessation:Counseling Given: Not Answered Alcohol Use Standard Drinks/Week Comments Yes 0 [...] for your loved ones. For example, child neurologist or elderly care for an older adult? [...] Orientation Straight 03/03/2024 2: 14 PM EST Obstetrics History Para Term AB IAB SAB Ectopic Multiple Livin g Live Births 0 0 0 0 Last Filed Vital Signs Vital Sign Reading Time Taken Comments Blood Pressure 118/62 08/11/2024 11:13 AM EDT Pulse 56 08/11/2024 11:13 AM EDT Temperature 35.9 C (96.7 F) 08/11/2024 11:13 AM EDT Respiratory Rate 16 08/11/2024 11:13 AM EDT Oxygen Saturation 96% 08/11/2024 11:13 AM EDT Inhaled Oxygen Concentration - - Weight 83 kg (183 lb) 08/11/2024 11:13 AM EDT Height 170.2 cm (5' 7 ) 08/11/2024 11:13 AM EDT Body Mass Index 28.66 08/11/2024 11:13 AM EDT Plan of Treatment Upcoming Encounters Date Type Department Care Team (Late st Contact Info) Description 02/16/2025 1:30 PM EST Office Visit Adult Medicine [facility] [address] [place], [place] [phone] Gisela Pillai MD [address] [place], [place] 04/20/2025 10:30 AM EST Office Visit Orthopedic Surgery - [place] [address] [phone] Eric Alcala, DPM [address] [phone] Health Maintenance Due Date Last Done Comments Colorectal Cancer Screening: Colonoscopy 1950 Hepatitis B Vaccines (2 of 2 - CpG 2-dose series) 03/18/2023 02/18/2023 Depression Screening 03/30/2024 02/11/2024 COVID-19 Vaccine ( season) 2024 07/12/2024, 01/14/2024, 12/26/2022, Additional history exists Influenza Vaccine (#1) 2024 , 12/16/2022, 12/30/2021, Additional history exists Falls Risk Assessment 02/10/2025 02/11/2024 Medicare Annual Wellness Visit 02/10/2025 02/11/2024 Social Influencers of Health Screening 02/10/2025 02/11/2024 Hypertension/CHF/CAD Annual BMP Blood Test 10/03/2025 10/03/2024, 09/29/2024, 09/26/2024, Additional history exists Cholesterol Screening (Lipid Panel) 08/09/2028 08/10/2023, 08/10/2023 DTaP,Tdap,and Td Vaccines (3 - Td or Tdap) 11/29/2030 11/29/2020, 08/15/2010 Osteoporosis Screening (Bone Density Screening) 05/21/2032 05/21/2022, 01/25/2020, 01/28/2017 Hepatitis C Screening Completed 01/26/2013 RSV Immunization Adult Patients Completed 02/10/2023 Breast Cancer Screening Discontinued 05/27/2024, 05/21 Zoster Vaccines Completed 06/15/2024, 03/30, 12/27/2020, Additional history exists Pneumococcal Vaccine: 50+ Years Completed 07/12/2024, 11/30/2015, 11/24/2014 HIB Vaccines Aged Out No longer eligi ble based on patient's age to complete this topic HPV Vaccines Aged Out No longer eligi ble based on patient's age to complete this topic Hepatitis A Vaccines Aged Out No long er eligible based on patient's age to complete this topic IPV Vaccines Aged Out No longer eligi ble based on patient's age to complete this topic MMR Vaccines Aged Out No longer eligi ble based on patient's age to complete this topic Meningococcal ACWY Vaccine Aged Out N o longer eligible based on patient's age to complete this topic Meningococcal B Vaccine Aged Out No l onger eligible based on patient's age to complete this topic RSV Immunization Patients Under 20 months Aged Out No longer eligible based on patient's age to complete this topic Varicella Vaccines Aged Out No longer eligible based on patient's age to complete this topic Procedures Procedure Name Priority Date/Time Associated Diagnosis Comments BASIC METABOLIC PANEL Routine 10/03/2024 7:55 AM EDT Essential (primary) hypertension Hyperlipidemia, unspecified Weakness MG MAMMO DIGITAL SCREENING W RAPHAEL BILAT Routine 05/27/2024 2:53 PM EST Screening mammogram, encounter for LIPID PANEL Routine 08/10/2023 DXA BONE DENSITY STUDY 1+ SITS AXIAL SKEL Routine 05/21/2022 2:41 PM EST Other specified disorders of bone density and structure, unspecified site HM HEPATITIS C SCREENING Routine 01/26/2013 from Last 3 Months or Most Recently Relevant to Health Maintenance Results * Basic metabolic panel (10/03/2024 7:55 AM EDT) Sodium 139 133 - 145 mmol/L LAB CHEMISTRY METHOD 10/03/2024 10:56 AM [facility] Potassium 3.9 3.5 - 5.5 mmol/L LAB CHEMISTRY METHOD 10/03/2024 10:56 AM [facility] Chloride 103 96 - 110 mmol/L LAB CHEMISTRY METHOD 10/03/2024 10:56 AM [facility] CO2 29 21 - 32 mmol/L LAB CHEMISTRY METHOD 10/03/2024 10:56 AM [facility] Anion Gap 7 3 - 11 LAB CHEMISTRY METHOD 10/03/2024 10:56 AM [facility] Glucose 96 70 - 100 mg/dL LAB CHEMISTRY METHOD 10/03/2024 10:56 AM [facility] BUN 9 5 - 25 mg/dL LAB CHEMISTRY METHOD 10/03/2024 10:56 AM [facility] Creatinine 0.69 0.50 - 1.10 mg/dL LAB CHEMISTRY METHOD 10/03/2024 10:56 AM [facility] eGFR 91 >=60 mL/min/1. 73m2 LAB CHEMISTRY METHOD 10/03/2024 10:56 AM [facility] Comment:Calculation based on the Chronic Kidney Disease Epidemiology Collaboration (CKD-EPI) equation refit without adjustment for race. BUN/Creatinine Ratio 13.0 LAB CHEMISTRY METHOD 10/03/2024 10:56 AM [facility] Calcium 9.5 8.5 - 10.5 mg/dL LAB CHEMISTRY METHOD 10/03/2024 10:56 AM [facility] Blood Venous blood specimen / Unknown Venipuncture / Unknown 10/03/2024 7:55 AM EDT 10/03/2024 9:45 AM EDT us Katheryn Neville MD LAB BLOOD ORDERABLES Fin al Result [facility] [address] [place] [address], [place] [phone] * MG Mammo Digital Screening w Raphael bilat (05/27/2024 2:53 PM EST) Anatomical Region Laterality Modality Breast Bilateral Mammography 05/30/2024 12:5 1 PM EST Impressions 05/30/2024 12:59 PM EST 1. No mammographic evidence of malignancy 2. Heterogeneous breast parenchyma BI-RADS CATEGORY: 2 - BENIGN RECOMMENDATION: Screening bilateral mammogram is recommended in 1 year. Mammo Location: [facility], [address] [place] [address], [id number], . -------- FINAL REPORT -------- Dictated By: Leni Guillen Dictated Date: 05/30/2024 12:51 ET Assigned Physician: Leni Guillen Reviewed and Electronically Signed By: Leni Guillen Signed Date: 05/30/2024 12:59 ET Workstation ID: [id number] Transcribed By: Self Edit Transcribed Date: 05/30/2024 12:51 ET Narrative 05/30/2024 12:59 PM EST A BILATERAL DIGITAL 3D SCREENING MAMMOGRAPHY HISTORY: Routine screening. Family history of breast cancer in aunt COMPARISON: Multiple priors dating back to 02/03/2020 Technique: Bilateral full field digital mammography (3D) was performed using standard CC and MLO projections , bilateral exaggerated cc views CAD was used to evaluate this mammogram. FINDINGS: Right: No suspicious masses, groups of microcalcification or areas of architectural distortion identified. Stable typically benign parenchymal asymmetries. Left: No suspicious masses, groups of microcalcification or areas of architectural distortion identified. Stable typically benign parenchymal asymmetries. Upper outer posterior depth biopsy marker. BREAST DENSITY: C - The breasts are heterogeneously dense which may obscure small masses. Procedure Note Leni Guillen MD - 05/30/2024 A BILATERAL DIGITAL 3D SCREENING MAMMOGRAPHY HISTORY: Routine screening. Family history of breast cancer in aunt COMPARISON: Multiple priors dating back to 02/03/2020 Technique: Bilateral full field digital mammography (3D) was performedusing standard CC and MLO projections , bilateral exaggerated cc views CAD was used to evaluate this mammogram. FINDINGS: Right: No suspicious masses, groups of microcalcification or areas ofarchitectural distortion identified. Stable typically benign parenchymalasymmetries. Left: No suspicious masses, groups of microcalcification or areas ofarchitectural distortion identified. Stable typically benign parenchymalasymmetries. Upper outer posterior depth biopsy marker. BREAST DENSITY: C - The breasts are heterogeneously dense which mayobscure small masses. IMPRESSION: 1. No mammographic evidence of malignancy 2. Heterogeneous breast parenchyma BI-RADS CATEGORY: 2 - BENIGN RECOMMENDATION: Screening bilateral mammogram is recommended in 1 year. Mammo Location: [facility], [address] [place] [address], [id number], . -------- FINAL REPORT -------- Dictated By: Leni Guillen Dictated Date: 05/30/2024 12:51 ET Assigned Physician: Leni Guillen Reviewed and Electronically Signed By: Leni Guillen Signed Date: 05/30/2024 12:59 ET Workstation ID: [id number] Transcribed By: Self Edit Transcribed Date: 05/30/2024 12:51 ET Gisela Pillai MD IMG BI PROCEDURES Final Result * Lipid panel (08/10/2023) LDL/HDL Ratio 2 0 - 4 Triglycerides 90 0 - 150 mg/dL Cholesterol 196 0 - 200 mg/dL HDL 86 >=40 mg/dL LDL Cholesterol 92 mg/dL Blood Venous blood specimen / Unknown Historical Provider LAB BLOOD ORDERABLES Betzy l Result * DXA BONE DENSITY STUDY 1+ SITS AXIAL SKEL (05/21/2022 2:41 PM EST) Anatomical Region Laterality Modality Bone Densitometr y 01/28/2022 12:3 3 PM EDT Narrative 05/22/2022 12:56 PM EST BONE DENSITY (DEXA) Lumbar Spine T-score is 0.1. (SD relative to 20-29 y/o adult) Z-score is 2.4. (SD relative to age matched peers) This is considered normal by WHO criteria. RIGHT Hip T-score is -2.2. Z-score is -0.3. This is considered osteopenia by WHO criteria. IMPRESSION: This patient is considered to have osteopenia by WHO criteria. The [facility] Department of Internal Medicine recommends using National Osteoporosis Foundation (NOF) guidelines in treatment decisions related to osteoporosis. NOF guidelines suggest considering treatment for postmenopausal women and men aged 50 or older presenting with the following: History of hip or vertebral fracture. T-score = -2.5 (DXA) at the femoral neck, total hip, or spine, after appropriate evaluation to exclude secondary causes. Low bone mass (T-score between -1.0 and -2.5 at the femoral neck or spine) AND a 10-year probability of a hip fracture = 3% OR a 10-year probability of a major osteoporosis-related fracture = 20% based on the [place]-adapted WHO algorithm Please note that all treatment decisions require clinical judgment and consideration of individual patient factors, including patient preferences, co-morbidities, previous drug use, risk factors not captured in the FRAX model (e.g., frailty, falls, vitamin D deficiency, increased bone turnover, interval significant decline in bone density) and possible under- or over-estimation of fracture risk by FRAX. Optional alternative screening schedule based on jennifer Zepeda., [facility] April 17, 2011 for patients with osteopenia (based on hip BMD T-score) is as follows: * advanced osteopenia (T scores -2.00 to -2.49), BMD testing every year * moderate osteopenia (T scores -1.50 to -1.99), BMD testing every 5 years mild osteopenia or normal BMD (T scores -1.50 and higher), BMD testing every 15 years Procedure Note Yuliana Quezada MD - 05/05/2023 BONE DENSITY (DEXA) Lumbar Spine T-score is 0.1. (SD relative to 20-29 y/o adult) Z-score is 2.4. (SD relative to age matched peers) This is considered normal by WHO criteria. RIGHT Hip T-score is -2.2. Z-score is -0.3. This is considered osteopenia by WHO criteria. IMPRESSION: This patient is considered to have osteopenia by WHO criteria. The [facility] Department of Internal Medicine recommendsusing National Osteoporosis Foundation (NOF) guidelines in treatment decisions related toosteoporosis. NOF guidelines suggest considering treatment for postmenopausal women and menaged 50 or older presenting with the following: History of hip or vertebral fracture. T-score = -2.5 (DXA) at the femoral neck, total hip, or spine, afterappropriate evaluation to exclude secondary causes. Low bone mass (T-score between -1.0 and -2.5 at the femoral neck or spine)AND a 10-year probability of a hip fracture = 3% OR a 10-year probability of a majorosteoporosis-related fracture = 20% based on the [place]-adapted WHO algorithm Please note that all treatment decisions require clinical judgment andconsideration of individual patient factors, including patient preferences, co- morbidities,previous drug use, risk factors not captured in the FRAX model (e.g., frailty, falls, vitaminD deficiency, increased bone turnover, interval significant decline in bone density) andpossible under- or over-estimation of fracture risk by FRAX. Optional alternative screening schedule based on jose manuel Zepeda al., NEJMJanuary 2011 for patients with osteopenia (based on hip BMD T-score) is as follows: * advanced osteopenia (T scores -2.00 to -2.49), BMD testing every year * moderate osteopenia (T scores -1.50 to -1.99), BMD testing every 5years mild osteopenia or normal BMD (T scores -1.50 and higher), BMD testingevery 15 years Roshni MOLINA IMG DXA PROCEDURES Final Resu lt * Hepatitis C Screening (01/26/2013) [facility] Hepatitis C Screening abstracted Historical Provider MD HEALTH MAINTENANCE Final Result from Last 3 Months or Most Recently Relevant to Health Maintenance Insurance [facility] [place] [phone] [employer] [place] [employer] AD[employer]AGE Advance Directives Documents on File Type Date Recorded Patient Machine Hand Expl anation Power of Installers Mechanical 02/24/2024 3:47 PM Auth oziation for Release of Protected Health Information Power of Installers Mechanical 02/24/2024 12:52 PM [employer] Power of [employer]ers [employer] Care Teams Channel Account Manager Relationship Specialty Start Date End Date Gisela Pillai MD [address] [place] [address] PCP - General Internal Medicine 11/16/20
== END 2025-02-14 15:34 | disposition home or self-care (01) ==
LOC: HO.HSM 14:21
PROVIDERS: PCP Internal Medicine; Visit Provider Registered Nurse
DX: G30.9 Alzheimer's disease, unspecified (principal); F02.80 Dementia in other diseases classified elsewhere, unspecified severity, without behavioral disturbance, psychotic disturbance, mood disturbance, and anxiety
CPT/HCPCS: 99214